=== PATIENT | male | born 2000 | race Caucasian/White ===

== ENCOUNTER 2023-10-15 11:13 | Outpatient (CLI) | payer OTHER, SELFPAY | END 2023-10-15 11:14 | disposition home or self-care (01) | PROVIDERS: PCP Family Medicine; Visit Provider Family Medicine | DX: Z00.00 Encounter for general adult medical examination without abnormal findings (principal); I10 Essential (primary) hypertension; K76.0 Fatty (change of) liver, not elsewhere classified; E66.01 Morbid (severe) obesity due to excess calories; E55.9 Vitamin D deficiency, unspecified; R53.83 Other fatigue; F41.1 Generalized anxiety disorder; Z86.39 Personal history of other endocrine, nutritional and metabolic disease; Z68.43 Body mass index [BMI] 50.0-59.9, adult; Z13.9 Encounter for screening, unspecified | CPT/HCPCS: 80048; 80061; 80076; 82306; 84443; 85025 ==

== ENCOUNTER 2023-12-22 13:27 | Outpatient (CLI) | payer OTHER, SELFPAY ==
[2023-12-22 19:46] LABS: Chlamydia DNA Amplified* NOT DETECTED (No Detected); GC DNA Amplified* NOT DETECTED (No Detected)
== END 2023-12-22 13:28 | disposition home or self-care (01) ==
PROVIDERS: PCP Family Medicine; Visit Provider Family Medicine
DX: Z11.3 Encounter for screening for infections with a predominantly sexual mode of transmission (principal)
CPT/HCPCS: 86592; 86703; 86706; 87491; 87591

== ENCOUNTER 2024-02-02 20:47 | Outpatient (CLI) | payer OTHER, SELFPAY ==
--- NOTE | 2024-02-09 08:51 | W.PM.SLEEP ---
Sleep Study Details Details Interpreting Provider: Dennys Date of Sleep Study: 02/02/24 Sleep Study Details: STUDY TYPE:? Hospital-based with CPAP titration ? BMI:? A 50.7 ORDERING PROVIDER:? Chris INDICATION:? Concerns about sleep apnea ? SLEEP SUMMARY:? 217.5 minutes total sleep time RESPIRATORY SUMMARY:? Mean oxygen awake 94 asleep 93, minimum 87, 0.5 minutes oxygen between 80 and 88% AHI 95 (note entire study was done nonsupine for the baseline portion of the study) no supine REM sleep was seen CPAP titration was attempted up to a pressure of 10 decreasing AHI is 6.4 and including some REM sleep in the nonsupine position PERIODIC LIMB MOVEMENTS OF SLEEP:? None CARDIAC:? Awake 94, asleep 81, PVCs were noted IMPRESSION:? Severe obstructive sleep apnea with partially successful titration mostly in the lateral position RECOMMENDATION: AutoSet CPAP pressure 8-17. Patient should be advised to sleep in the lateral position.
== END 2024-02-02 20:48 | disposition home or self-care (01) ==
PROVIDERS: PCP Family Medicine; Visit Provider Otolaryngology
DX: G47.33 Obstructive sleep apnea (adult) (pediatric) (principal)
CPT/HCPCS: 95811

== ENCOUNTER 2024-09-26 16:07 | Outpatient (CLI) | payer BC, SELFPAY | END 2024-09-26 16:08 | disposition home or self-care (01) | PROVIDERS: PCP Family Medicine; Visit Provider Family Medicine | DX: K76.0 Fatty (change of) liver, not elsewhere classified (principal); I10 Essential (primary) hypertension; E55.9 Vitamin D deficiency, unspecified; K58.9 Irritable bowel syndrome, unspecified; Z11.3 Encounter for screening for infections with a predominantly sexual mode of transmission; Z11.4 Encounter for screening for human immunodeficiency virus [HIV]; Z13.220 Encounter for screening for lipoid disorders | CPT/HCPCS: 80048; 80061; 82306; 84460; 85025; 85651; 86231; 86258; 86364; 86592; 86703 ==

== ENCOUNTER 2025-07-14 16:16 | Emergency (ER) | payer BC, SELFPAY ==
--- OUTSIDE RECORDS SUMMARY | 2025-07-14 16:18 | XMS_ITS | Clinical Summary ---
Author Organization [facility] Address [address] [place] [id number] Care Team Providers Care Manager [employer] Name Role Phone Geraldo Nolan [facility] Primary Care Provider Allergies No known active allergies Medications MedicationSigDispense QuantityRefillsLast FilledStart DateEnd DateStatus cloNIDine HCL (CATAPRES) 0.1 mg tablet Indications:Anxiety reactionTake 1 Tablet (0.1 mg) by mouth 3 times daily if needed (anxiety). 15 Tablet 08/09/2022ctive Active Problems ProblemNoted DateDiagnosed DatePrimary ilvnieornwgo92/15/2023Morbid obesity 09/03/2022Moderate episode of recurrent major depressive wjunmjso64/15/2023 Generalized anxiety oezqausw91/15/2023Social anxiety kikpgnva25/25/2017Insomnia 08/13/2016Seasonal allergic wegqhrpw77/18/2016ADHD (attention deficit hyperactivity disorder)04/24/2012 Immunizations ImmunizationAdministration DatesNext FapBEF2509/19/2005,03/05/2002,08/13/2001, 02/05/2001,2000HPV 9 (Gardasil 9)04/29/2017,10/07/2016Hepatitis A (Peds) 04/29/2017,10/07/2016Hepatitis B (Peds)06/06/2002,02/05/2001,2000Hib Conjugate, Pvxzbxsllqu86/18/2002,03/05/2002,02/05/2001,2000Influenza A (H1N1), Inactivated (Age >=3 Years)07/30/2009,07/02/2009Influenza Virus, Pokmzqckvpb10/21/2009Influenza, CDS961MENINGOCOCCAL VACCINE 2 VIAL 2MO- 55YO (MENVEO)03/10/2013MMR09/19/2005,08/13/2001Pneumococcal conj 7-Valent (Prevnar 7)08/13/2001,02/05/2001Polio Virus, Fdmmielxsdm68/03/2006,08/13/2001, 02/05/2001,2000Tdap03/10/2013Varicella Eefrclt2901/01/2010,08/13/2001 Family History Medical HistoryRelationNameCommentsAsthmaFatherRelationNameStatusCommentsFather AliveMotherAlive Social History Tobacco UseTypesPacks/DayYears UsedDateSmoking Tobacco: Every DayCigarettes Smokeless Tobacco: Never Tobacco Cessation:Ready to Q uit: Not Asked; Counseling Given: Not Answered Alcohol UseStandard Drinks/WeekCommentsNo0 (1 standard drink = 0.6 oz pure alcohol)Interpersonal SafetyAnswerDate RecordedAre you being hit, kicked, pushed or yelled at (see row info)?No10/02/2023Interpersonal Safety Abuse 12 - 18Not on file10/02/2023Interpersonal Safety Ambulatory VulnerabilityNot on file10/02/2023 Sex and Gender InformationValueDate RecordedSex Assigned at BirthNot on file Legal RwxIkko4608/02/2012 5:42 AM CSTGender IdentityNot on fileSexual Orientation Not on file Last Filed Vital Signs Vital SignReadingTime TakenCommentsBlood Yxyrgsmd307/9209 12:51 PM CDT Rcxun71418/04/2025 12:51 PM MKDVbcaaoqcskr05.1 ??C (98.8 ??F)03/23/2025 12:27 PM CDTRespiratory Thjh216603/23/2025 12:27 PM CDTOxygen Dvizoulenl62%03/23/2025 12:27 PM CDTInhaled Oxygen Concentration--Qwsveo525.5 kg (398 lb)03/23/2025 12:27 PM VRVMxevdt858.3 cm (5' 11)10/02/2023 10:58 AM CDTBody Mass Index55.51010/02/2023 10:58 AM CDT Plan of Treatment Health MaintenanceDue DateLast DoneCommentsHIV for age 15-65007/31/2015HPV series for age 9-45 (3 - Male 3-dose series), 10/07/2016Depression screening for age 12+, 03/20/2017, 12/19/2016, Additional history existsHepatitis C screening for age 18-7907/31/2018Pneumococcal series for age 6-49 (1 of 2 - PCV), 02/05/2001BMI (ht and wt on same day) for age 18+, 01/03/2019Tetanus dauwbgo7003/10/2023 03/10/2013COVID-19 vaccine series (2 - 2024- season) Influenza Vaccine (#1), 04/09/2009Hepatitis B series for 19+ Gjeyenfsh20/18/2002, 02/05/2001, 2000 Insurance * Guarantor: Jennifer Rodriguez LAccount TypeRelation to PatientDate of BirthPhone Billing AddressPersonal/LsqkauFmgwor61/01/1970 [id number] [place] [address] Care Teams Team MemberRelationshipSpecialtyStart DateEnd Date Geraldo Nolan MBBS [address] [place], [place] [address] Jimenes [id number] PCP - GeneralFamily Practice08/08/22
[2025-07-14 16:32] VITALS: BP 178/91; PULSE 120; RESP 18; TEMP 37.3; O2SAT 97; BMI 56.8
--- NOTE | 2025-07-14 16:35 | CRLHL7_ITS ---
For Patients: As a result of the Century Cures Act, medical imaging exams and procedure reports are released immediately into your electronic medical record. You may view this report before your referring provider. If you have questions, please contact your health care provider. INDICATION: Calf and thigh pain. Shortness of breath.. TECHNIQUE: Ultrasound venous duplex left lower extremity. Compression venous exam was performed using moralez-scale, color Doppler, and spectral Doppler analysis. COMPARISON: None. FINDINGS: Patent left common femoral vein, femoral vein, popliteal vein, and visualized calf veins. IMPRESSION: No deep venous thrombosis detected in the left lower extremity. Dictated by Lb Murphy MD @ 07/14/2025 5:40:19 PM (Electronically Signed)
--- NOTE | 2025-07-14 18:03 | ED.GENADULT ---
HPI - General Adult General Chief complaint: Shortness of Breath/Dyspnea Stated complaint: Shortness of breath, L calf pain Time Seen by Provider: 07/14/25 17:53 History of Present Illness HPI narrative: This 24-year-old male comes in reporting pain down the backside of his left leg for the past couple days. He does not report any injury event. He does report some shortness of breath and states that he typically has a faster heart rate. He does not have any chest pain. He does not have any history of blood clots. He does have a history of hypertension and likely has some elevated glucose possibly with diabetes. He does not take medicines as he is afraid doing so. He reports anxiety symptoms in this regard. Related Data Home Medications ?Medication ?Instructions ?Recorded ?Confirmed cetirizine 10 mg tablet (24Hour 10 mg PO QDAY PRN 10/15/23 03/22/25 Allergy) Previous Rx's ?Medication ?Instructions ?Recorded clonazepam 0.5 mg tablet (Klonopin) 0.25 - 0.5 mg (0.5 - 1 x 0.5 mg) 10/15/23 PO BID #30 tabs cholecalciferol (vitamin D3) 1,250 1,250 mcg PO QWEEK #13 caps 09/26/24 mcg (50,000 unit) capsule metoprolol succinate 50 mg 50 mg PO QDAY #90 tabs 09/26/24 tablet,extended release 24 hr (Toprol XL) omeprazole 40 mg capsule,delayed 40 mg PO QDAY #90 caps 09/26/24 release tirzepatide (weight loss) 2.5 2.5 mg (0.5 mL) subcut QWEEK #2 mL 03/22/25 mg/0.5 mL subcutaneous pen injector (Zepbound) semaglutide (weight loss) 0.25 0.25 mg (0.5 mL) subcut QWEEK #2 mL 04/28/25 mg/0.5 mL subcutaneous pen injector (Wegovy) bupropion HCl 150 mg 24 hr tablet, 150 mg PO QAM #30 tabs 05/26/25 extended release (Wellbutrin XL) cyclobenzaprine 10 mg tablet 10 mg PO TID #15 tabs 07/14/25 ketorolac 10 mg tablet 10 mg PO TID 5 days #15 tabs 07/14/25 methylprednisolone 4 mg tablets in See Rx Instructions PO .COMPLEX 07/14/25 a dose pack (Medrol (Chaitanya)) #21 ea propranolol 20 mg tablet 20 mg PO BID #60 tabs 07/14/25 Allergies Allergy/AdvReac Type Severity Reaction Status Date / Time No Known Drug Allergies Allergy Verified 07/14/25 16:31 Review of Systems Status of ROS: Reports: 10 or more systems reviewed and unremarkable except as noted in History and below Narrative: Constitutional: No fevers, no weight gain or loss. Eyes: No discharge. No vision changes. HENT: No congestion, no sore throat, no ear pain. Cardiovascular: No chest pain, no palpitations. Respiratory: No wheezes, no cough. Gastrointestinal: No abdominal pain, no vomiting, no diarrhea. Genitourinary: No dysuria, no hematuria. Musculoskeletal: Normal range of motion. Pain behind the left leg extending down toward his foot. Skin: No rashes, no pruritis. Neurological: No dizziness, weakness, sensory change, speech change. Endo/Heme/Allergies: No bruising or bleeding. No polydipsia. Pysch: no suicidality, no insomnia. All other systems reviewed and are negative. [facility] Medical History (Updated 07/14/25 @ 18:08 by Clifton Bell MD) Prediabetes ?R73.03 - Prediabetes (ICD-10) JANETT (obstructive sleep apnea) ?G47.33 - Obstructive sleep apnea (adult) (pediatric) (ICD-10) GERD (gastroesophageal reflux disease) ?K21.9 - Gastro-esophageal reflux disease without esophagitis (ICD-10) IBS (irritable bowel syndrome) ?K58.9 - Irritable bowel syndrome without diarrhea (ICD-10) Vitamin D deficiency ?E55.9 - Vitamin D deficiency, unspecified (ICD-10) Hepatic steatosis ?K76.0 - Fatty (change of) liver, not elsewhere classified (ICD-10) Pilonidal disease ?L98.8 - Other specified disorders of the skin and subcutaneous tissue (ICD-10) ADHD (attention deficit hyperactivity disorder) ?F90.9 - Attention-deficit hyperactivity disorder, unspecified type (ICD-10) Seasonal rhinitis ?J30.2 - Other seasonal allergic rhinitis (ICD-10) Insomnia ?G47.00 - Insomnia, unspecified (ICD-10) Social phobia ?F40.10 - Social phobia, unspecified (ICD-10) ABNER (generalized anxiety disorder) ?F41.1 - Generalized anxiety disorder (ICD-10) Depression, major, recurrent, moderate ?F33.1 - Major depressive disorder, recurrent, moderate (ICD-10) Morbid obesity with BMI of 50.0-59.9, adult ?E66.01 - Morbid (severe) obesity due to excess calories (ICD-10) ?Z68.43 - Body mass index [BMI] 50.0-59.9, adult (ICD-10) Essential hypertension ?I10 - Essential (primary) hypertension (ICD-10) Surgical History (Updated 10/14/23 @ 09:58 by Jane Ventura) History of incision and drainage (10/02/23) ?Z98.890 - Other specified postprocedural states (ICD-10) History of circumcision ?Z98.890 - Other specified postprocedural states (ICD-10) Family History (Updated 12/27/23 @ 18:35 by Vaibhav Perez MD) Father Bipolar disorder COPD (chronic obstructive pulmonary disease) Alcohol dependence Asthma Mother Depression High blood pressure Social History (Updated 09/27/24 @ 13:42 by Mikki Wolf ~ RMA, RMA) Narrative: Single, no kids, homosexual, works in [place] What is your current living situation?: I presently have a place to live Problems where you live: no known problems In the past 12 months, utilities in danger of being shut off: no In past 12 months, lack of transportation kept you from medical appts, meetings, work, or getting things needed for daily living: no In the past 12 mos, have been you worried that your food would run out before you had money to buy more?: never true In the past 12 mos, the food you bought just didn't last and you didn't have money to buy more?: never true How often does anyone, including family, friends and others, physically hurt you: never How often does anyone, including family, friends and others, insult or talk down to you: never How often does anyone, including family, friends and others, threaten you with harm: never How often does anyone, including family, friends and others, scream or curse at you: never Exam Narrative: Exam Narrative: Constitutional: Well-developed, well-nourished, no acute distress. HEENT: Normocephalic, atraumatic. Neck: Normal range of motion. Nontender. Supple. Heart: Regular. No murmurs. Normal rate. Intact distal pulses. Lungs: Clear to auscultation. No chest discomfort. No wheezes, rhonchi, or rales. Abdomen: Normal bowel sounds. Nontender. No rebound tenderness. Genitalia: Deferred. Back: No midline tenderness. Normal range of motion. Pain is reproduced when passively raising his left leg. The pain is primarily in his posterior thigh and buttock. He does not report any back pain. Extremities: Normal range of motion. No injury. Skin: Intact. No rash. Warm. No erythema or pallor. Neurologic: No altered sensation. No weakness. Alert and oriented. Psychiatric: No suicidality. No anxiety or depression. No insomnia. Nursing notes and vitals signs are reviewed. Const: Vital Signs, click to edit/add: Vital Signs - 24 hr 07/14/25 16:32 Temperature 99.1 F Pulse Rate [Pulse Oximeter] 120 H Respiratory Rate 18 Blood Pressure [Ri ght Upper Arm] 178/91 H Pulse Oximetry 97 Oxygen Delivery Me thod Room Air Course Vital Signs Vital signs: Initial Vital Signs Temperature 99.1 F 07/14/25 16:32 Temperature Source Temporal Artery Scan 07/14/25 16:32 Pulse Rate 120 H 07/14/25 16:32 Respiratory Rate 18 07/14/25 16:32 Blood Pressure 178/91 H 07/14/25 16:32 Blood Pressure Mean 120 H 07/14/25 16:32 Pulse Oximetry 97 07/14/25 16:32 Oxygen Delivery Method Room Air 07/14/25 16:32 Vital Signs Temperature 99.1 F 07/14/25 16:32 Pulse Rate 120 H 07/14/25 16:32 Respiratory Rate 18 07/14/25 16:32 Blood Pressure 178/91 H 07/14/25 16:32 Pulse Oximetry 97 07/14/25 16:32 Oxygen Delivery Method Room Air 07/14/25 16:32 Temperature 99.1 F 07/14/25 16:32 Pulse Rate 120 H 07/14/25 16:32 Respiratory Rate 18 07/14/25 16:32 Blood Pressure 178/91 H 07/14/25 16:32 Pulse Oximetry 97 07/14/25 16:32 Oxygen Delivery Method Room Air 07/14/25 16:32 Medical Decision Making MDM Narrative Medical decision making narrative: This patient has pain in the posterior aspect of his left leg as described above. An ultrasound of the lower extremities obtained to rule out blood clot in this returns negative for thrombosis. His symptoms are more suspicious of sciatica pain. I did prescribe Toradol, Flexeril, and Medrol Dosepak. He understands that the steroid may cause his glucose to rise temporarily. He also has untreated hypertension and has been prescribed medicines but does not take them because of anxiety symptoms. I stated that he might benefit from propranolol which can affect both blood pressure and anxiety. He is agreeable to give this a try. Prescriptions for these medicines were provided to his preferred pharmacy. I advised him to follow-up with his primary physician. Discharge Plan Discharge Clinical Impression: Sciatica, Hypertension Patient Disposition: Home, Self-Care Condition: Stable Additional Instructions: Take medications as prescribed. Follow-up with primary physician to plan for ongoing management. Return if worsening. Prescriptions: New cyclobenzaprine 10 mg tablet 10 mg PO TID Qty: 15 0RF ketorolac 10 mg tablet 10 mg PO TID 5 Days Qty: 15 0RF methylprednisolone [Medrol (Chaitanya)] 4 mg tablets,dose pack See Rx Instructions .ROUTE .COMPLEX Qty: 21 0RF Rx Instructions: orally per package directions propranolol 20 mg tablet 20 mg PO BID Qty: 60 2RF No Action cetirizine [24Hour Allergy] 10 mg tablet 10 mg PO QDAY PRN clonazepam [Klonopin] 0.5 mg tablet 0.25 - 0.5 mg PO BID Qty: 30 1RF Zepbound 2.5 mg/0.5 mL pen injector 2.5 mg subcut QWEEK Qty: 2 0RF Rx Instructions: for 4 weeks bupropion HCl [Wellbutrin XL] 150 mg tablet extended release 24 hr 150 mg PO QAM Qty: 30 1RF cholecalciferol (vitamin D3) 1,250 mcg (50,000 unit) capsule 1,250 mcg PO QWEEK Qty: 13 3RF omeprazole 40 mg capsule,delayed release(DR/EC) 40 mg PO QDAY Qty: 90 3RF metoprolol succinate [Toprol XL] 50 mg tablet extended release 24 hr 50 mg PO QDAY Qty: 90 3RF Wegovy 0.25 mg/0.5 mL pen injector 0.25 mg subcut QWEEK Qty: 2 0RF Rx Instructions: administer weeks 1 through 4 of therapy Follow Up/Referrals: Vaibhav Perez MD [Primary Care Provider, Family Practice] Stand Alone Forms: MyHealth Info Instructions
== END 2025-07-14 18:16 | disposition home or self-care (01) ==
PROVIDERS: Emergency Provider Emergency Medicine Emergency Medical Services; PCP Family Medicine
DX: M54.31 Sciatica, right side (principal); I10 Essential (primary) hypertension
CPT/HCPCS: 93971; 99284